=== PATIENT | male | born 1975 | race Caucasian/White ===

== ENCOUNTER → 2017-05-28 | Outpatient (CLI) | payer OTHER ==
[~2017-05-28] MED LIST: GADOBUTROL 10 ML VIAL IVP ONE
== END ==
LOC: FIMAGING 13:10
PROVIDERS: ATTEND Physician Assistant Medical
DX: R42 Dizziness and giddiness (principal); R20.0 Anesthesia of skin; G93.0 Cerebral cysts; M54.12 Radiculopathy, cervical region
CPT/HCPCS: A9585